=== PATIENT | male | born 1970 | race American Indian/Alaskan Native ===

== ENCOUNTER 2022-03-28 04:49 | Emergency (ER) | payer OTHER ==
[~2022-03-28] VITALS: Ht 182.9 cm; Wt 90.7 kg
[~2022-03-28 04:49] MED LIST: ALBU90I INH; ALBU90OI6 INH; AMOCLA500 PO; ASPI325EC PO; Ativan1 MG PO; BUSP5 PO; CARV3.125 PO; CHLO25 PO; CIPR500 PO; CITA20 PO; CLIN150 PO; CLON.1 PO; CODGUAEL PO; CYCL10 PO; Celexa40 MG PO; DIAZ5 PO; DOXY100 PO; Diovan320 MG PO; ESCI20 PO; HALO2 PO; HYDACE5 PO; HYDGUAL120 PO; HYDMOR4 PO; IBUP800 PO; KETO15TC TOP; LANS15EC PO; METR500 PO; NAPR500 PO; Norco 5-325 Ta1 EACH PO; OMEP40CA12 PO; ONDA4ODT MM; OXYACE5T PO; OXYC5 PO; PRAZ2 PO; PRED20 PO; PROM25 PO; PROP120ER PO; PROP80ER PO; QUET300 PO; RXCYCL10 PO; RXHYD5325 PO; RXHYDACE PO; RXONDA4ODT MM; RXOXYACE PO; SUCR1 PO; TRAM50 PO; VENL25 PO; ZESTORETIC 20-121 EA PO; ZOLP10 PO
[2022-03-28] MEDS ORDERED: Bactrim Ds Tab1 EACH PO (05:54)
[2022-03-28] MEDS ORDERED: CEPH500 PO (05:54)
== END 2022-03-28 06:28 | disposition home or self-care (01) ==
LOC: ER 04:49
DX: L02.512 Cutaneous abscess of left hand (principal); M79.5 Residual foreign body in soft tissue; F17.200 Nicotine dependence, unspecified, uncomplicated; Z88.0 Allergy status to penicillin; Z79.899 Other long term (current) drug therapy; Z23 Encounter for immunization
CPT/HCPCS: 73140; 90714; A9270